=== PATIENT | female | born 1980 | race African-American/Black ===

== ENCOUNTER → 2018-12-31 | Outpatient (CLI) | payer MEDICAID ==
[~2018-12-31] VITALS: Ht 170.2 cm; Wt 60.0 kg
[2018-12-31] VITALS (11 sets, daily range): BP systolic 110–151; BP diastolic 77–94; PULSE 75–92
[2018-12-31 09:18] LABS: INR 1.3 (0.8-3.0); PROTHROMBIN TIME 14.9 SECONDS (9.7-12.8)
--- NOTE | 2018-12-31 10:15 | NUR ---
PT ON THE TABLE AND MONITORING EQUIPMENT PLACED. PICTURES TAKEN
--- NOTE | 2018-12-31 10:30 | NUR ---
PT LAYING STILL AND VERY NERVOUS.
--- NOTE | 2018-12-31 10:35 | NUR ---
PT TOLERATEING PROCEDURE WELL
== END ==
LOC: COL.RAD 08:49
PROVIDERS: Internal Medicine Gastroenterology
DX: K74.60 Unspecified cirrhosis of liver (principal); E87.1 Hypo-osmolality and hyponatremia